=== PATIENT | female | born 1970 | race African-American/Black ===

== ENCOUNTER → 2020-10-31 | Outpatient (CLI) | payer BC, OTHER ==
[2020-06-22 15:00] VITALS: BP 151/76
[~2020-10-31] MED LIST: AMOX1TAB61 PO; INSU100C4 SQ; INSU100I13 SQ; INSU100V37 SQ; IOHEXOL 240 MG/ML 50ML VIAL. PO ONE; IOHEXOL 300 MG/ML 100ML VIAL. IV ONE; LISI30TA4 PO
--- NOTE | 2020-10-31 17:19 | KCIC ---
EXAMINATION: CT abdomen and pelvis with IV contrast. INDICATION:50 years, Female, pneumoperitoneum. TECHNIQUE: Axial CT images of the abdomen and pelvis were obtained. Coronal and sagittal reformatted performed. COMPARISON: None. Exposure: One or more of the following individualized dose reduction techniques were utilized for thi s examination: 1. Automated exposure control 2. Adjustment of the mA and/or kV according to patient size 3. Use of iterative reconstruction technique. FINDINGS: LOWER CHEST: Subsegmental atelectasis versus scarring in the right middle lobe. ABDOMEN/PELVIS: Small to moderate amount of pneumoperitoneum. Markedly distended stomach filled with ingested materia l. No small bowel dilatation. Unremarkable appendix. Liver, spleen, gallbladder, biliary ducts pancreas and adrenals are unremarkable. No hydronephrosis o r nephrolithiasis kidney. Normal caliber abdominal aorta. Mesenteric arteries and portal vein are pat ent. Diffuse mesenteric edema. Trace amount of pelvic free fluid. No lymphadenopathy in the abdomen o r pelvis by size criteria. Underdistended urinary bladder which limits evaluation. Unremarkable uteru s. No suspicious pelvic masses. MUSCULOSKELETAL: No acute osseous process. Severe degenerative changes at L4-5. IMPRESSION: 1. Small to moderate amount of pneumoperitoneum. 2. Markedly distended stomach filled with ingested material. No small bowel dilatation. FOR INTERNAL CODING PURPOSES Critical result: Findings discussed with GILA GARCIA MD at 10/31/2020 5:12 PM. RESULT CODE: (C) Electronically signed by: Ward Alvarez MD (10/31/2020 5:17 PM) [facility]
== END ==
LOC: KCIC CT 14:02
PROVIDERS: ATTEND Student in an Organized Health Care Education/Training Program
DX: K66.8 Other specified disorders of peritoneum (principal); R60.0 Localized edema; M47.816 Spondylosis without myelopathy or radiculopathy, lumbar region
CPT/HCPCS: 74177; 82565; Q9966; Q9967